=== PATIENT | female | born 1975 | race Caucasian/White ===

== ENCOUNTER 2017-04-10 15:01 | Emergency (ER) | payer BC, OTHER ==
[~2017-04-10] VITALS: Ht 165.1 cm; Wt 78.7 kg
[~2017-04-10 15:01] MED LIST: BUPR150T5 PO; PROM25TA9 PO
[2017-04-10 15:03] VITALS: TEMP 36.8; Ht 165.1 cm; Wt 78.7 kg
[2017-04-10] MEDS ORDERED: FLUT0.15 NAE (15:17)
[2017-04-10] MEDS ORDERED: ACETAMINOPHEN 500 MG TAB PO STA (15:25)
[2017-04-10] MEDS ORDERED: ONDANSETRON 4MG OD TAB PO STA (15:25)
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
[2017-04-10] MEDS ORDERED: DIAZ-165 PO (16:51)
[2017-04-10 17:03] VITALS: BP 101/64; PULSE 88; O2SAT 98
== END 2017-04-10 17:05 | disposition home or self-care (01) ==
LOC: C.EDB 15:02 → C.EDD 17:05
DX: S16.1XXA Strain of muscle, fascia and tendon at neck level, initial encounter (principal); V43.52XA Car driver injured in collision with other type car in traffic accident, initial encounter; Z79.899 Other long term (current) drug therapy; Z90.49 Acquired absence of other specified parts of digestive tract

== ENCOUNTER → 2017-10-21 | Outpatient (CLI) | payer BC ==
[~2017-10-21] MED LIST changes: -BUPR150T5 PO; +FLUT0.15 NAE; -PROM25TA9 PO
== END | disposition home or self-care (01) ==
LOC: C.LABBC 12:35
PROVIDERS: ATTEND Physician Assistant
DX: R30.0 Dysuria (principal)

== ENCOUNTER 2017-11-25 11:20 | Emergency (ER) | payer BC ==
[~2017-11-25] VITALS: Ht 165.1 cm; Wt 80.0 kg
[2017-11-25 11:34] VITALS: BP 117/73; PULSE 84; TEMP 36.7; O2SAT 98; Ht 165.1 cm; Wt 80.0 kg
[2017-11-25] MEDS ORDERED: METH4PAK PO (11:51)
[2017-11-25] MEDS ORDERED: OXYC1TAB3 PO (11:51)
--- NOTE | 2017-11-25 17:52 | EMERGENCY ROOM VISIT NOTE ---
History First contact with patient: 11:37 Chief Complaint: ARM PAIN Stated Complaint: PAIN RIGHT ARM History of Present Illness The patient is a 42 year old female who presents to the Emergency Room with complaints of right upper extremity pain and numbness, along with neck pain. The patient reports that the pain occasionally radiates into the right upper and posterior shoulder region. The patient reports that her pain is significantly worsened with movement of the neck, especially when she looks to the left. The patient denies any recent injury to the neck. With movement of the neck, the patient rates her discomfort a 10 out of 10. She denies any chest pressure, shortness of breath or recent upper respiratory symptoms. Review of Systems 10 system review was performed and was negative except for pertinent positives and negatives as indicated in history of present illness Past Medical/Surgical History Medical Problems: (1) Hyperemesis gravidarum (2) Normal vaginal delivery Surgical Problems: (1) S/P cholecystectomy Family History Cancer Gallbladder disease Lung disease Seizures Social History Smoking Status: Former Smoker Alcohol Use: none Drug Use: none Marital Status: in relationship Occupation Status: employed Current/Historical Medications Scheduled Fluticasone Propionate (Nasal) (Flonase Allergy Relief), 1 SPRAY ERIC DAILY Methylprednisolone (Medrol Dosepak), 0 PO DAILY Scheduled PRN Oxycodone Ir (Roxicodone Ir), 1-2 TAB PO Q4H PRN for Pain Physical Exam Vital Signs Date Time Temp Pulse Resp B/P (MAP) Pulse Ox O2 Delivery O2 Flow Rate FiO2 11/25/17 11:34 36.7 84 20 117/73 98 Room Air Physical Exam CONSTITUTIONAL: Healthy and well nourished. Alert and oriented X 3 with positive affect. Patient appears in moderate discomfort with any left lateral gaze. HEENT: Normocephalic, atraumatic. Pupils equal, round and reactive. Ears and nares are clear. No conjunctival injection or scleral icterus. OROPHARYNX: No tonsillar hypertrophy or posterior pharyngeal erythema. NECK: Left lateral gaze significantly worsens the patient's right upper extremity discomfort. No nuchal rigidity noted. RESPIRATORY: Clear to auscultation bilaterally with no wheezing, crackles, rhonchi or stridor. Deep breathing does not worsen the patient's discomfort. CARDIOVASCULAR: Regular rate and rhythm with no murmurs, rubs or gallops. GASTROINTESTINAL: Bowel sounds present in all quadrants. MUSCULOSKELETAL: Examination shows no significant worsening pain with internal or external rotation of the right shoulder. She has no palpable tenderness to the distal clavicle, acromioclavicular joint or scapula. Equal hand teacher theater arts bilaterally. INTEGUMENTARY: No rash or other significant dermatologic conditions noted. Examination shows no dermatomal rash of the neck or right shoulder region. NEUROLOGIC: Cranial nerves II-XII grossly intact. No focal neurologic deficits noted. Right deltoid sensation is intact. Medical Decision & Procedures Medications Administered Medications (Trade) Dose Ordered Sig/Elaina Route Start Time Stop Time Status Last Admin Dose Admin Prednisone (PredniSONE TAB) 60 mg NOW STAT PO 11/25/17 11:47 11/25/17 11:49 DC 11/25/17 11:53 60 MG ED Course Patient history and physical exam were performed. Nurse's notes were reviewed. Vital signs were reviewed and normal. Patient has reproducible symptoms with left lateral gaze,'s highly suggestive of acute cervical radiculitis. A soft collar was applied, and the patient was encouraged to intermittently apply ice to the base of the neck. The patient was administered prednisone 60 mg in the emergency department. She refused any additional analgesics, requesting that I send a perception to the pharmacy for her so that she may take them when she gets home. The patient was provided prescriptions for Medrol Dosepak and OxyIR 5 mg, dispensed #15 with no refills. The patient was encouraged to follow-up with her PCP if symptoms are not improving within the next several days. Return to the emergency department for any worsening symptoms, chest pain, shortness of breath, fever or other concerning symptoms. The patient was happy with plan of care, voiced understanding of all discharge instructions, and rated her discomfort a 6 out of 10 at the conclusion of my exam. Medical Decision As indicated in the previous section, clinical exam and history are highly suggestive of cervical radiculitis. I do not suspect other acute cardiopulmonary etiologies. She has no rash to suggest herpes zoster. She has no significant worsening discomfort with range of motion of the right shoulder, therefore I do not suspect fracture, dislocation or rotator cuff arthropathy. [place] Drug Monitoring Program Search Results: patient reviewed within database, no issues identified Medication Reconcilliation Current Medication List: was personally reviewed by me Blood Pressure Screening Patient's blood pressure: Normal blood pressure Impression Primary Impression: Cervical radiculitis Departure Information Dispostion Home / Self-Care Prescriptions Methylprednisolone (MEDROL DOSEPAK) 4 Mg Chintan 0 PO DAILY, #1 PKT Prov: Noe Will PA 11/25/17 Oxycodone Ir (Roxicodone Ir) 5 Mg Tab 1-2 TAB PO Q4H Y for Pain, #15 TAB For Initial Treatment Prov: Noe Will PA 11/25/17 Referrals Loly Ortiz P.A. (PCP) No Doctor, Assigned Forms HOME CARE DOCUMENTATION FORM, IMPORTANT VISIT INFORMATION Patient Instructions My [facility], ED Cervical Radiculopathy Additional Instructions Intermittently apply ice to neck as instructed. Wear soft collar for additional relief. Ibuprofen 800 mg and/or Tylenol 1000 mg every 8 hours. You may also alternate these medications for more effective pain relief: Ibuprofen --4 HRS--> Tylenol --4 HRS--> ibuprofen --4 HRS--> Tylenol .... OxyIR if needed for worse pain. Do not drink alcohol or drive while taking OxyIR. Take prednisone daily as prescribed, next dose tomorrow morning. Follow-up with your PCP if symptoms are not improving within the next 3-5 days.
== END 2017-11-25 12:04 | disposition home or self-care (01) ==
LOC: C.EDB 11:22 → C.EDD 12:04
DX: M54.12 Radiculopathy, cervical region (principal); Z90.49 Acquired absence of other specified parts of digestive tract; Z87.891 Personal history of nicotine dependence; Z80.9 Family history of malignant neoplasm, unspecified; Z82.0 Family history of epilepsy and other diseases of the nervous system; Z84.1 Family history of disorders of kidney and ureter

== ENCOUNTER → 2017-12-03 | Outpatient (CLI) | payer BC ==
[~2017-12-03] MED LIST changes: +METH4PAK PO; +OXYC1TAB3 PO
--- NOTE | 2017-12-03 17:26 | DIAGNOSTIC IMAGING REPORT ---
CERVICAL SPINE MRI HISTORY: M54.12 Cervical radiculopathy, [id number] Weakness of right arm TECHNIQUE: MRI of the cervical spine was performed without the use of contrast. Only sagittal T2 sequences were obtained. The patient was unable to complete the entire examination. COMPARISON STUDY: Cervical spine 04/10/2017. FINDINGS: Wheel Lacer And Truer images demonstrate 3 adjacent partially cystic right thyroid nodules. Dominant nodule measures 4.7 x 3.3 cm. Otherwise, the prevertebral soft tissues and the C1-C2 interval are intact. The visualized posterior fossa is unremarkable. The cervical spinal cord demonstrate normal signal intensity. Study is suboptimal as only sagittal T2 sequences were obtained. There is also mild motion artifact within the sequences. Mild disc space narrowing at C6-C7. No definite fracture or subluxation. C2-C3: No significant central canal or neural foraminal narrowing. C3-C4: No significant central canal or neural foraminal narrowing. C4-C5: No significant central canal or neural foraminal narrowing. C5-C6: No significant central canal or neural foraminal narrowing. Tiny broad-based posterior disc bulge. C6-C7: Best seen on sagittal image 6 there is a 9 x 7 mm right paracentral focal disc extrusion. This abuts and slightly deforms anterior cord. This likely compresses the exiting nerve root at this level. No left-sided neural foraminal narrowing. C7-T1: No significant central canal or neural foraminal narrowing. IMPRESSION: 1. Suboptimal study. The patient was unable to tolerate the entire exam. Only sagittal T2 sequences were obtained. 2. There is a 9 x 7 mm right paracentral focal disc extrusion at C6-C7 which likely compresses the exiting nerve root at this level. This also results in mild right-sided cord deformity. 3. Multiple solid and cystic right thyroid nodules with the largest measuring 4.7 cm. Follow-up nonemergent thyroid ultrasound is recommended for further evaluation. Electronically signed by: Foster Cooper M.D. 12/03/2017 5:25 PM Dictated Date/Time: 12/03/2017 5:20 PM
== END | disposition home or self-care (01) ==
LOC: C.MRIBC 15:55
PROVIDERS: ATTEND Nurse Practitioner Adult Health
DX: R29.898 Other symptoms and signs involving the musculoskeletal system (principal); M50.123 Cervical disc disorder at C6-C7 level with radiculopathy; E04.2 Nontoxic multinodular goiter